=== PATIENT | female | born 1975 ===

== ENCOUNTER → 2018-08-11 21:15 | Outpatient (REF) | payer OTHER, SELFPAY ==
[2018-08-11 22:50] LABS: Alanine Aminotransferase 44 IU/L (9-52); Albumin 4.5 g/dL (3.5-5.0); Albumin Globulin Ratio 1.5 (1.0-2.8); Alkaline Phosphatase 92 U/L (38-126); Aspartate Aminotransferase 31 IU/L (14-36); BUN Creatinine Ratio 28.6 (6-22); Bilirubin Total 0.1 mg/dL (0.2-1.3); Blood Urea Nitrogen 20 mg/dL (7-17); Calcium 9.4 mg/dL (8.4-10.2); Carbon Dioxide 26 mmol/L (22-32); Chloride 100 mmol/L (98-107); Estimated Glomerular Filt Rate > 60.0 mL/min (>60); Glucose 74 mg/dL (70-100); HEMOLYSIS < 15 (0-50); Potassium 4.3 mmol/L (3.4-5.1); Sodium 139 mmol/L (137-145); Total Protein 7.5 g/dL (6.3-8.2)
[2018-08-12 16:44] LABS: Free T3, Triiodothyronine Free 3.68 pg/mL (2.77-5.27)
[2018-08-12 16:58] LABS: Thyroid Stimulating Hormone 3.08 uIU/mL (0.47-4.68)
[2018-08-14 14:08] LABS: EBV Virus IgM Ab < 36.00 U/mL (< 36.00)
== END ==
LOC: LAB 21:15
PROVIDERS: Visit Provider Naturopath
DX: R74.0 Nonspecific elevation of levels of transaminase and lactic acid dehydrogenase [LDH] (principal)
CPT/HCPCS: 36415; 80053; 84443; 84481; 86663; 86664; 86665

== ENCOUNTER → 2018-08-24 21:32 | Outpatient (REF) | payer OTHER, SELFPAY ==
[2018-08-28 14:53] LABS: Cortisol, Saliva 1 sample 0.04 mcg/dL
== END ==
LOC: LAB 21:32
PROVIDERS: Visit Provider Naturopath
DX: R74.0 Nonspecific elevation of levels of transaminase and lactic acid dehydrogenase [LDH] (principal); R53.82 Chronic fatigue, unspecified
CPT/HCPCS: 82530